=== PATIENT | male | born 1955 | race Caucasian/White ===

== ENCOUNTER → 2024-02-08 12:25 | Outpatient (REF) | payer OTHER, SELFPAY ==
[2024-02-08 13:40] LABS: Urine Albumin Trace (Neg - Trace); Urine Bilirubin 3+ (Negative); Urine Character Clear (Clear); Urine Glucose Negative (Negative); Urine Ketone Negative (Negative); Urine Leukocyte Trace (Negative); Urine Nitrite Positive (Negative); Urine Occult Blood 1+ (Negative); Urine Urobilinogen 3+ (Neg - 1+)
[2024-02-08 13:45] LABS: Urine Color Orange
[2024-02-08 13:51] LABS: Urine Amorphous Seen; Urine Mucus Moderate
[2024-02-08 13:55] LABS: Urine Bacteria Moderate (Negative)
== END ==
LOC: RAD 12:25
PROVIDERS: ATTENDING PHYSICIAN Family Medicine Geriatric Medicine; FAMILY PHYSICIAN Nurse Practitioner Family
DX: C61 Malignant neoplasm of prostate (principal); R39.15 Urgency of urination; R33.9 Retention of urine, unspecified; R30.0 Dysuria
CPT/HCPCS: 81003; 81015; 87086

== ENCOUNTER 2024-03-04 06:36 | Day surgery (SDC) | payer OTHER, SELFPAY ==
[2024-02-29 09:56] LABS: Hematocrit 43.2 % (39.0-52.0); Hemoglobin 14.5 g/dL (13.0-18.0); Mean Corp Hgb Conc. 33.6 g/dL (33.0-37.0); Mean Corpuscular Hgb 29.1 pg (27.0-31.0); Mean Corpuscular Volume 86.6 fL (80.0-94.0); Platelet Count 195 10^3/uL (130-400); Red Blood Cell Count 4.99 10^6/uL (4.70-6.10); Red Cell Dist. Width 15.1 % (11.5-14.5); White Blood Cell Count 6.2 10^3/uL (4.8-10.8)
[2024-02-29 10:22] LABS: Blood Urea Nitrogen 22 mg/dl (9-20); Calcium 10.2 mg/dl (8.4-10.2); Carbon Dioxide 22 mmol/L (22-30); Chloride 107 mmol/L (98-107); Glucose 113 mg/dl (70-99); Potassium 4.4 mmol/L (3.5-5.1); Sodium 137 mmol/L (135-145); eGFR > 60.00
[2024-03-04] VITALS (13 sets, daily range): BP systolic 136–162; BP diastolic 74–98; BMI 26.8
[2024-03-04] MEDS: NORMOSOL-R 1000 IV (09:15)
[2024-03-04 10:34] LABS: Urine Albumin 1+ (Neg - Trace); Urine Bilirubin Negative (Negative); Urine Character Clear (Clear); Urine Color Yellow; Urine Glucose Negative (Negative); Urine Ketone Negative (Negative); Urine Leukocyte 1+ (Negative); Urine Nitrite Negative (Negative); Urine Occult Blood 2+ (Negative); Urine Urobilinogen Negative (Neg - 1+)
[2024-03-04 10:42] LABS: Urine Mucus Few; Urine Squamous Cell 0-2 /LPF (Few)
[2024-03-04 10:43] LABS: Urine Bacteria Few (Negative)
[2024-03-04] MEDS: DILAUDID 0.25 MG IV ×4 (12:21→12:46)
[2024-03-04] MEDS: ZOFRAN 4 MG IV (12:34)
[2024-03-04] MEDS: OFIRMEV 100 IV (12:50)
[2024-03-04] MEDS: DILAUDID 0.5 MG IV (13:10)
[2024-03-04] MEDS: Pyridium 200 MG PO (13:52)
[2024-03-04] MEDS: COMPAZINE 5 MG IV (15:32)
== END 2024-03-04 16:46 | disposition home or self-care (01) ==
LOC: SDS 06:36
PROVIDERS: ATTENDING PHYSICIAN Specialist; FAMILY PHYSICIAN Nurse Practitioner Family
DX: N21.0 Calculus in bladder (principal); Z90.79 Acquired absence of other genital organ(s)
CPT/HCPCS: 52317; 36415; 80048; 81003; 81015; 82365; 85027; 85610; 85730; 87086; 93005

== ENCOUNTER → 2024-09-16 10:16 | Outpatient (REF) | payer OTHER, SELFPAY | LOC: HWRAD 10:16 | PROVIDERS: ATTENDING PHYSICIAN Nurse Practitioner Family | DX: Z87.891 Personal history of nicotine dependence (principal) | CPT/HCPCS: 71271 ==

== ENCOUNTER → 2024-09-18 14:16 | Outpatient (REF) | payer OTHER, SELFPAY | LOC: HWRAD 14:16 | PROVIDERS: ATTENDING PHYSICIAN Nurse Practitioner Family | DX: I71.40 Abdominal aortic aneurysm, without rupture, unspecified (principal) | CPT/HCPCS: 76770 ==

== ENCOUNTER → 2025-07-20 15:25 | Outpatient (REF) | payer OTHER, SELFPAY | LOC: RAD 15:25 | PROVIDERS: ATTENDING PHYSICIAN Specialist; FAMILY PHYSICIAN Nurse Practitioner Family | DX: R97.21 Rising PSA following treatment for malignant neoplasm of prostate (principal) | CPT/HCPCS: 74178; Q9967 ==

== ENCOUNTER → 2025-07-31 07:33 | Outpatient (REF) | payer OTHER, SELFPAY | LOC: MRI 07:33 | PROVIDERS: ATTENDING PHYSICIAN Specialist; FAMILY PHYSICIAN Nurse Practitioner Family | DX: C61 Malignant neoplasm of prostate (principal); H05.50 Retained (old) foreign body following penetrating wound of unspecified orbit | CPT/HCPCS: 70030; 74183; A9575 ==

== ENCOUNTER 2025-08-11 06:27 | Day surgery (SDC) | payer OTHER, SELFPAY ==
[2025-08-06 11:23] LABS: Hematocrit 45.4 % (39.0-52.0); Hemoglobin 15.1 g/dL (13.0-18.0); Mean Corp Hgb Conc. 33.3 g/dL (33.0-37.0); Mean Corpuscular Volume 87.1 fL (80.0-94.0); Platelet Count 236 10^3/uL (130-400); Red Cell Dist. Width 14.9 % (11.5-14.5)
[2025-08-06 11:50] LABS: Blood Urea Nitrogen 22 mg/dl (9-20); Calcium 9.6 mg/dl (8.4-10.2); Carbon Dioxide 23 mmol/L (22-30); Chloride 107 mmol/L (98-107); Glucose 110 mg/dl (70-99); Potassium 4.9 mmol/L (3.5-5.1); Sodium 135 mmol/L (135-145); eGFR > 60.00
[2025-08-06 13:49] VITALS: BMI 29.0
[2025-08-11] VITALS (9 sets, daily range): BP systolic 117–152; BP diastolic 68–82; BMI 29.0
[2025-08-11] MEDS: EMEND 40 MG PO (12:37)
[2025-08-11] MEDS: NORMOSOL-R/PLASMALYTE-A 1000 IV (12:39)
[2025-08-11] MEDS: ZOFRAN 4 MG IV (17:07)
== END 2025-08-11 17:38 | disposition home or self-care (01) ==
LOC: SDS 06:27
PROVIDERS: ATTENDING PHYSICIAN Specialist; FAMILY PHYSICIAN Nurse Practitioner Family
DX: N32.89 Other specified disorders of bladder (principal); Z92.3 Personal history of irradiation; N21.0 Calculus in bladder; N32.0 Bladder-neck obstruction; Z90.79 Acquired absence of other genital organ(s)
CPT/HCPCS: 52318; 36415; 80048; 82365; 85027; 93005

== ENCOUNTER 2025-08-18 07:17 | Outpatient (REF) | payer OTHER, SELFPAY ==
[2025-08-18] VITALS (9 sets, daily range): BP systolic 66–153; BP diastolic 69–86
[2025-08-18 07:36] LABS: INR 0.90; PT 12.4 Sec (11.4-14.6)
[2025-08-18] MEDS: ATIVAN 1 MG PO (07:51)
[2025-08-18] MEDS: ZOFRAN 4 MG IV (07:51)
== END 2025-08-18 11:35 | disposition home or self-care (01) ==
LOC: RADI 07:17
PROVIDERS: ATTENDING PHYSICIAN Internal Medicine Hematology & Oncology; FAMILY PHYSICIAN Nurse Practitioner Family; OTHER PHYSICIAN Physician Assistant
DX: K76.89 Other specified diseases of liver (principal); C61 Malignant neoplasm of prostate
CPT/HCPCS: 36415; 47000; 76942; 85610; 88307; 88333; 88341; 88342; 99152; 99153

== ENCOUNTER → 2025-09-11 12:21 | Outpatient (REF) | payer OTHER, SELFPAY | LOC: PET 12:21 | PROVIDERS: ATTENDING PHYSICIAN Family Medicine Geriatric Medicine | DX: C61 Malignant neoplasm of prostate (principal); C78.7 Secondary malignant neoplasm of liver and intrahepatic bile duct | CPT/HCPCS: 78815; A9552 ==

== ENCOUNTER → 2025-10-02 10:05 | Outpatient (REF) | payer OTHER, SELFPAY | LOC: HWRAD 10:05 | PROVIDERS: ATTENDING PHYSICIAN Internal Medicine Hematology & Oncology; FAMILY PHYSICIAN Nurse Practitioner Family | DX: C61 Malignant neoplasm of prostate (principal); C78.7 Secondary malignant neoplasm of liver and intrahepatic bile duct | CPT/HCPCS: 76536 ==

== ENCOUNTER 2025-10-06 06:40 | Outpatient (REF) | payer OTHER, SELFPAY ==
[2025-10-06] VITALS (12 sets, daily range): BP systolic 67–144; BP diastolic 68–88
[2025-10-06 07:06] LABS: Hematocrit 42.9 % (39.0-52.0); Hemoglobin 14.5 g/dL (13.0-18.0); Mean Corp Hgb Conc. 33.8 g/dL (33.0-37.0); Mean Corpuscular Volume 84.4 fL (80.0-94.0); Platelet Count 241 10^3/uL (130-400); Red Cell Dist. Width 14.6 % (11.5-14.5)
[2025-10-06 07:22] LABS: INR 0.92; PT 12.5 Sec (11.4-14.6)
== END 2025-10-06 11:40 | disposition home or self-care (01) ==
LOC: RADI 06:40
PROVIDERS: ATTENDING PHYSICIAN Internal Medicine Hematology & Oncology; FAMILY PHYSICIAN Nurse Practitioner Family; OTHER PHYSICIAN Physician Assistant
DX: K76.89 Other specified diseases of liver (principal); Z85.46 Personal history of malignant neoplasm of prostate; D68.8 Other specified coagulation defects
CPT/HCPCS: 36415; 47000; 76942; 85027; 85610; 88307; 88333; 99152; 99153